=== PATIENT | female | born 1995 | race American Indian/Alaskan Native ===

== ENCOUNTER 2018-03-14 09:40 | Emergency (ER) | payer SELFPAY ==
[2018-03-14 09:57] VITALS: BP 113/77
[2018-03-14] MEDS ORDERED: VEETIDS PO ONE (13:43)
[2018-03-14] MEDS ORDERED: ULTRAM PO ONE (13:43)
--- NOTE | 2018-03-14 13:48 | Emergency Department Report ---
ED General Adult HPI - General Chief complaint: Sore Throat Stated complaint: SORE THROAT/BODY ACHE/EAR ACHE Time Seen by Provider: 03/14/18 13:24 Source: patient Mode of arrival: Ambulatory Limitations: No Limitations - History of Present Illness Initial comments: She presents to emergency department with a chief complaint of sore throat and body aches. Patient stated her symptoms started 2 days ago and have become progressively worse. Patient denies having a fever at home. -: Gradual Radiation: non-radiation Severity scale (0 -10): 4 Quality: aching Consistency: constant Improves with: none, cold therapy Worsens with: eating Associated Symptoms: denies other symptoms Treatments Prior to Arrival: none - Related Data Home Medications Medication Instructions Recorded Confirmed Last Taken Vit 108/Iron/Folic AC 1 each PO QDAY 01/15/14 01/15/14 01/15/14 [ One Tablet] Valacyclovir HCl [Valacyclovir] 500 mg PO DAILY 01/15/14 01/15/14 01/15/14 Previous Rx's Medication Instructions Recorded Last Taken Type Ferrous Sulfate [Feosol 325 MG tab] 325 mg PO TID #90 tablet 01/15/14 Unknown Rx Ibuprofen [Motrin 800 MG tab] 800 mg PO Q8H PRN #90 tablet 01/15/14 Unknown Rx oxyCODONE /ACETAMINOPHEN [Percocet 1 tab PO Q6HR PRN #30 tablet 01/15/14 Unknown Rx 5/325 mg] Ibuprofen [Motrin] 800 mg PO Q8HR PRN #30 tablet 03/14/18 Unknown Rx Penicillin V Potassium 500 mg PO TID #21 tablet 03/14/18 Unknown Rx Allergies Allergy/AdvReac Type Severity Reaction Status Date / Time No Known Allergies Allergy Verified 01/15/14 15:15 ED Review of Systems ROS: Stated complaint: SORE THROAT/BODY ACHE/EAR ACHE Other details as noted in HPI Constitutional: denies: chills, fever Eyes: denies: eye pain, eye discharge, vision change ENT: throat pain. denies: ear pain Respiratory: denies: cough, shortness of breath, wheezing Cardiovascular: denies: chest pain, palpitations Endocrine: no symptoms reported Gastrointestinal: denies: abdominal pain, nausea, diarrhea Genitourinary: denies: urgency, dysuria, discharge Musculoskeletal: denies: back pain, joint swelling, arthralgia Skin: denies: rash, lesions Neurological: denies: headache, weakness, paresthesias Psychiatric: denies: anxiety, depression Hematological/Lymphatic: denies: easy bleeding, easy bruising ED Past Medical Hx - Past Medical History Hx Hypertension: No Hx Congestive Heart Failure: No Hx Diabetes: No Hx Deep Vein Thrombosis: No Hx Renal Disease: No Hx Sickle Cell Disease: No Hx Seizures: No Hx Asthma: No Hx COPD: No Hx HIV: No - Surgical History Additional Surgical History: c sect - Social History Smoking Status: Current Every Day Smoker Substance Use Type: None - Medications Home Medications: Home Medications Medication Instructions Recorded Confirmed Last Taken Type Ferrous Sulfate [Feosol 325 MG tab] 325 mg PO TID #90 tablet 01/15/14 Unknown Rx Ibuprofen [Motrin 800 MG tab] 800 mg PO Q8H PRN #90 tablet 01/15/14 Unknown Rx Vit 108/Iron/Folic AC 1 each PO QDAY 01/15/14 01/15/14 01/15/14 History [ One Tablet] Valacyclovir HCl [Valacyclovir] 500 mg PO DAILY 01/15/14 01/15/14 01/15/14 History oxyCODONE /ACETAMINOPHEN [Percocet 1 tab PO Q6HR PRN #30 tablet 01/15/14 Unknown Rx 5/325 mg] Ibuprofen [Motrin] 800 mg PO Q8HR PRN #30 tablet 03/14/18 Unknown Rx Penicillin V Potassium 500 mg PO TID #21 tablet 03/14/18 Unknown Rx ED Physical Exam - General Limitations: No Limitations General appearance: alert, in no apparent distress - Head Head exam: Present: atraumatic, normocephalic - Eye Eye exam: Present: normal appearance - ENT ENT exam: Present: mucous membranes moist, other (palatine tonsils are inflamed and erythematous with exudate) - Neck Neck exam: Present: normal inspection - Respiratory Respiratory exam: Present: normal lung sounds bilaterally. Absent: respiratory distress, wheezes, rales, rhonchi - Cardiovascular Cardiovascular Exam: Present: regular rate, normal rhythm. Absent: systolic murmur, diastolic murmur, rubs, gallop - GI/Abdominal GI/Abdominal exam: Present: soft, normal bowel sounds - Extremities Exam Extremities exam: Present: normal inspection - Back Exam Back exam: Present: normal inspection - Neurological Exam Neurological exam: Present: alert, oriented X3, CN II-XII intact. Absent: motor sensory deficit - Psychiatric Psychiatric exam: Present: normal affect, normal mood - Skin Skin exam: Present: warm, dry, intact, normal color. Absent: rash ED Course Vital Signs 03/14/18 09:54 Temperature 98.4 F Pulse Rate 79 Respiratory 16 Rate Blood Pressure 113/77 O2 Sat by Pulse 99 Oximetry ED Medical Decision Making - Medical Decision Making Discussed plan of care with patient Critical care attestation.: If time is entered above; I have spent that time in minutes in the direct care of this critically ill patient, excluding procedure time. ED Disposition Clinical Impression: Pharyngitis Disposition: DC-01 TO HOME OR SELFCARE Is pt being admited?: No Does the pt Need Aspirin: No Condition: Stable Instructions: Pharyngitis in Children (ED) Additional Instructions: return if worse Prescriptions: Ibuprofen [Motrin] 800 mg PO Q8HR PRN #30 tablet PRN Reason: pain Penicillin V Potassium 500 mg PO TID #21 tablet Referrals: RATNA PONCE MD [Primary Care Provider] - 3-5 Days Forms: Work/School Release Form(ED) Time of Disposition: 13:47
== END 2018-03-14 14:57 | disposition home or self-care (01) ==
LOC: ED 09:40
DX: J02.9 Acute pharyngitis, unspecified (principal); F17.200 Nicotine dependence, unspecified, uncomplicated
CPT/HCPCS: 99282